=== PATIENT | female | born 1970 | race Caucasian/White ===

== ENCOUNTER 2016-07-12 23:14 | Emergency (ER) | payer SELFPAY ==
[~2016-07-12] VITALS: Ht 162.6 cm; Wt 50.9 kg
[~2016-07-12 23:14] MED LIST: OXYC1TAB3 PO
[2016-07-12 23:16] VITALS: TEMP 37; Ht 162.6 cm; Wt 50.9 kg
[2016-07-12 23:25] VITALS: O2SAT 98
[2016-07-12] MEDS ORDERED: SODIUM CHLORIDE 0.9% 1000ML 500 ML IV STA (23:33)
[2016-07-12] MEDS ORDERED: ONDANSETRON INJ 2 MG/ML 2 ML VIAL IV STA (23:33)
--- NOTE | 2016-07-12 23:38 | EMERGENCY ROOM VISIT NOTE ---
History Report prepared by Rebecca: Shahid Mayorga Under the Supervision of: Dr. Jose Carroll M.D. First contact with patient: 23:27 Chief Complaint: CHEST PAIN Stated Complaint: CHEST PAIN History of Present Illness The patient is a 46 year old female who presents to the Emergency Room with complaints of left sided chest pain that began 7 hours ago. She rates her pain a 10/10 in severity. The patient came home from work this afternoon. She then began to be nauseated, then the pain began. It has been persistent since then. She states that breathing and moving make the pain worse. She is currently short of breath secondary to pain. She denies any abdominal pain. She has a past medical history of asthma. She has never had a cardiac issue in the past or a blood clot. However, she has been receiving cardiac stress tests that have been normal. She states that she has never felt this pain before. Her pain is radiating down her left arm. She denies any recent trauma or strenuous activity. Source of History: patient Onset: 7 hours ago Position: chest (left) Symptom Intensity: 10/10 Timing: constant Modifying Factors (Worsening): breathing, movement Associated Symptoms: + SOB, No abdominal pain Note: Her pain radiates down her left arm. Review of Systems See HPI for pertinent positives & negatives. A total of 10 systems reviewed and were otherwise negative. Past Medical & Surgical Medical Problems: (1) Ankle contusion (2) Bronchitis (3) Cervical lymphadenopathy (4) Chest pain (5) COPD (chronic obstructive pulmonary disease) (6) Crohn's disease (7) GERD (gastroesophageal reflux disease) (8) History of endometriosis (9) Shoulder contusion (10) Syncope (11) Tobacco use (12) Whiplash Surgical Problems: (1) Status post cholecystectomy (2) Status post hysterectomy Family History Diabetes mellitus Gallbladder disease Heart disease Hypertension Social History Smoking Status: Current Every Day Smoker Alcohol Use: none Drug Use: none Housing Status: lives with roommate Occupation Status: employed Current/Historical Medications Scheduled Levofloxacin (Levaquin), 750 MG PO QD@16 Scheduled PRN Oxycodone Ir (Roxicodone Ir), 1-2 TAB PO Q4H PRN for Pain Allergies Coded Allergies: Codeine (Verified Allergy, Unknown, 03/20/16) Penicillins (Verified Allergy, Unknown, 03/20/16) Physical Exam Vital Signs Date Time Temp Pulse Resp B/P Pulse Ox O2 Delivery O2 Flow Rate FiO2 07/13/16 02:49 88 18 85/71 98 07/13/16 02:40 88 18 85/71 98 Room Air 07/13/16 00:28 85 21 105/67 95 Room Air 07/13/16 00:00 95 Room Air 07/12/16 23:35 99 07/12/16 23:25 98 Room Air 07/12/16 23:16 37.0 94 22 111/78 99 Room Air Physical Exam GENERAL: Patient is in mild distress, somewhat tearful, and seems anxious. HEENT: No acute trauma, normocephalic atraumatic, mucous membranes moist, no nasal congestion, no scleral icterus. NECK: No stridor, no adenopathy, no meningismus, trachea is midline. LUNGS: Clear to auscultation bilaterally, no wheeze, no rhonchi, breath sounds equal. HEART: Mildly tachycardic rate and regular rhythm, no murmurs CHEST: Tender over the anterior chest wall near left breast. Pain also worsens with deep breathing and movement. ABDOMEN: Soft, nontender, bowel sounds positive, no hernias, no peritonitis. EXTREMITIES: No cyanosis or edema, full range of motion of all the joints without pain or difficulty, no signs for acute trauma. NEUROLOGIC: Oriented x 3, no acute motor or sensory deficits, no focal weakness. SKIN: No rash, no jaundice, no diaphoresis. Medical Decision & Procedures ER Provider Diagnostic Interpretation: X ray results and stated below per my interpretation and radiologist interpretation. Other radiology results and stated below per my review and radiologist interpretation: CTA CHEST: Comparison CT chest pulmonary embolism protocol 12/03/2014. No evidence of pulmonary embolism. Aorta is unremarkable. New consolidations in the medial segment of the right middle lobe and superior lingual are demonstrated and most likely on the basis of multifocal pneumonia. Stable emphysematous changes are present in both lungs. Radiologist: Favian Dunham M.D. CHEST X-RAY: No pneumothorax or mediastinal widening, possible left base infiltrate noted. Per nh Laboratory Results 07/12/16 23:23 07/12/16 23:23 Test 07/12/16 23:23 Red Blood Count 4.18 M/uL (4.2-5.4) Mean Corpuscular Volume 94.3 fL (80-100) Mean Corpuscular Hemoglobin 32.8 pg (25-34) Mean Corpuscular Hemoglobin Concent 34.8 g/dl (32-36) RDW Standard Deviation 43.7 fL (36.4-46.3) RDW Coefficient of Variation 12.6 % (11.5-14.5) Mean Platelet Volume 12.6 fL (7.4-10.4) Prothrombin Time 10.1 SECONDS (9.0-12.0) Prothromb Time International Ratio 0.9 (0.9-1.1) Activated Partial Thromboplast Time 33.1 SECONDS (21.0-31.0) Partial Thromboplastin Ratio 1.3 Anion Gap 9.0 mmol/L (3-11) Est Creatinine Clear Calc Drug Dose 62.8 ml/min Estimated GFR () 89.5 Estimated GFR (Non- 77.2 BUN/Creatinine Ratio 8.1 (10-20) Calcium Level 8.6 mg/dl (8.5-10.1) Total Bilirubin 0.2 mg/dl (0.2-1) Aspartate Amino Transf (AST/SGOT) 11 U/L (15-37) Alanine Aminotransferase (ALT/SGPT) 23 U/L (12-78) Alkaline Phosphatase 74 U/L (45-117) Troponin I < 0.015 ng/ml (0-0.045) Total Protein 7.2 gm/dl (6.4-8.2) Albumin 3.5 gm/dl (3.4-5.0) Globulin 3.7 gm/dl (2.5-4.0) Albumin/Globulin Ratio 0.9 (0.9-2) Laboratory results reviewed by me. Medications Administered Medications (Trade) Dose Ordered Sig/Juliette Route Start Time Stop Time Status Last Admin Dose Admin Sodium Chloride (Nss 1000ml) 500 ml @ 999 mls/hr Q31M STAT IV 07/12/16 23:33 07/13/16 00:03 DC 07/12/16 00:23 999 MLS/HR Ondansetron HCl (Zofran Inj) 4 mg NOW STAT IV 07/12/16 23:33 07/12/16 23:36 DC 07/12/16 00:23 4 MG Morphine Sulfate (MoRPHine SULFATE INJ) 4 mg Q15M PRN IV 07/12/16 23:45 07/13/16 04:25 DC 07/13/16 01:09 4 MG Morphine Sulfate (MoRPHine SULFATE INJ) 4 mg STK-MED ONCE .ROUTE 07/13/16 00:14 07/13/16 00:15 DC 07/13/16 00:23 4 MG Oxycodone HCl (Roxicodone Immediate Rel 5MG Home Pack) 1 homepack UD ONCE PO 07/13/16 02:30 07/13/16 02:31 DC 07/13/16 02:45 1 HOMEPACK Levofloxacin (Levaquin Tab) 750 mg NOW STAT PO 07/13/16 02:26 07/13/16 02:27 DC 07/13/16 02:45 750 MG ECG Indication: chest pain Rate (beats per minute): 87 Rhythm: sinus rhythm, other (short ME) Findings: no acute ischemic change, no ectopy, other (poor r wave progression) ED Course 2327: The patient was evaluated in room B7. A complete history and physical exam was performed. 2333: Ordered Zofran Inj 4 mg IV, Sodium Chloride 500 ml @ 999 mls/hr IV 2345: Morphine Sulfate 4 mg IV 0014: Morphine Sulfate 4 mg .ROUTE 0056: Morphine Sulfate 4 mg .ROUTE 0226: Levaquin Tab 750 mg PO 0230: Oxycodone HCl 1 homepack PO 0245: Reevaluated the patient. Discussed results and discharge instructions: She verbalized understanding and agreement. The patient is ready for discharge. Medical Decision Differential diagnosis includes but is not limited to pulmonary embolism, aortic dissection, myocardial infarction, pneumothorax, infection, musculoskeletal chest pain, and anxiety. There is a significant leukocytosis at 20,000, this could be consistent with infection. No concerning anemia. No significant electrolyte abnormality, kidney failure or hepatitis. EKG shows a sinus rhythm with a short ME. There was no acute ischemia. Cardiac enzyme testing 1 is not consistent with acute cardiac injury. Chest x-ray shows what appears to be a left base infiltrate. No pneumothorax or CHF. Chest CT shows pneumonia, no PE or aortic dissection. Blood cultures are pending. The patient received IV saline, IV morphine and IV Zofran. She was given oral Levaquin. The patient is more comfortable. I reviewed the findings with her and her significant other. I do think she can be discharged home as she is not hypoxic or toxic. She is being discharged on Levaquin, oxycodone, hydration and rest were encouraged. If worsening, she can return. The pain is likely pleurisy from her pneumonia. [place] Drug Monitoring Program Search Results: patient reviewed within database, no issues identified Impression Primary Impression: Left-sided chest wall pain Additional Impression: Pneumonia Scribe Attestation The scribe's documentation has been prepared under my direction and personally reviewed by me in its entirety. I confirm that the note above accurately reflects all work, treatment, procedures, and medical decision making performed by me. Departure Information Dispostion Home / Self-Care Prescriptions Levofloxacin (Levaquin) 750 Mg Tab 750 MG PO QD@16, #5 TAB Prov: Jose Carroll M.D. 07/13/16 Oxycodone Ir (Roxicodone Ir) 5 Mg Tab 1-2 TAB PO Q4H Y for Pain, #12 TAB Prov: Jose Carroll M.D. 07/13/16 Referrals Candice Simpson M.D. (PCP) Forms HOME CARE DOCUMENTATION FORM, IMPORTANT VISIT INFORMATION Patient Instructions My [facility] Additional Instructions levaquin daily for 5 more days oxy ir 1-2 tab every 4 hours for severe pain heat to the chest wall rest motrin 600 mg 3x per day for pain and inflamation see dionicio mendosa this week return for worsening symptoms or breathing Problem Qualifiers
[2016-07-12] MEDS ORDERED: MoRPHine SULFATE 10 MG/ML CARP/VIAL IV PRN (23:45)
[2016-07-12] MEDS ORDERED: OPTIRAY 320 IV PRN (23:45)
[2016-07-13 00:01] LABS: HEMATOCRIT 39.4 % (37-47); MEAN CELL VOLUME 94.3 fL (80-100); MEAN CORPUSCULAR HEMOGLOBIN 32.8 pg (25-34); MEAN CORPUSCULAR HGB CONC 34.8 g/dl (32-36); MEAN PLATELET VOLUME 12.6 fL (7.4-10.4); PLATELET COUNT 246 K/uL (130-400); RED BLOOD COUNT 4.18 M/uL (4.2-5.4); WHITE BLOOD COUNT 20.24 K/uL (4.8-10.8)
[2016-07-13 00:12] LABS: INR 0.9 (0.9-1.1); PARTIAL THROMBOPLASTIN RATIO 1.3; PROTHROMBIN TIME (PATIENT) 10.1 SECONDS (9.0-12.0)
[2016-07-13] MEDS ORDERED: MoRPHine SULFATE 4 MG/ML 1 ML CARP\\VIAL ONE ×2 (00:14→00:56)
[2016-07-13 00:23] LABS: ALT/SGPT 23 U/L (12-78); BLOOD UREA NITROGEN 7 mg/dl (7-18); BUN/CREATININE RATIO 8.1 (10-20); CALCIUM 8.6 mg/dl (8.5-10.1); CARBON DIOXIDE 24 mmol/L (21-32); CHLORIDE 105 mmol/L (98-107); CREATININE 0.89 mg/dl (0.60-1.20); GLUCOSE 91 mg/dl (70-99); POTASSIUM 3.4 mmol/L (3.5-5.1); SODIUM 138 mmol/L (136-145)
[2016-07-13 00:28] LABS: ALB/GLOB RATIO 0.9 (0.9-2); ALKALINE PHOSPHATASE 74 U/L (45-117); AST/SGOT 11 U/L (15-37)
[2016-07-13] MEDS ORDERED: LEVOFLOXACIN 250 MG TAB PO STA (02:26)
[2016-07-13] MEDS ORDERED: OXYCODONE IR HOME PACK PO ONE (02:30)
[2016-07-13] MEDS ORDERED: OXYC1TAB3 PO (02:31)
[2016-07-13] MEDS ORDERED: LEVO1TAB35 PO (02:31)
[2016-07-13 02:49] VITALS: BP 85/71; PULSE 88; O2SAT 98
--- NOTE | 2016-07-13 06:46 | DIAGNOSTIC IMAGING REPORT ---
CHEST ONE VIEW PORTABLE CLINICAL HISTORY: Atypical chest pain COMPARISON STUDY: No previous studies for comparison. FINDINGS: The heart is normal in size. There is no failure. There are minimal left basilar airspace opacities.[ IMPRESSION: Minimal left basal airspace opacities (atelectatic versus inflammatory). No evidence of failure. Electronically signed by: Phan Suero M.D. 07/13/2016 6:45 AM Dictated Date/Time: 07/13/2016 6:44 AM
--- NOTE | 2016-07-13 07:25 | DIAGNOSTIC IMAGING REPORT ---
CT ANGIOGRAM OF THE CHEST CLINICAL HISTORY: Left-sided chest pain COMPARISON STUDY: 12/03/2014 TECHNIQUE: Following the IV administration of 85 mL of Optiray-320, CT angiogram of the thorax was performed from the thoracic inlet to the lung bases utilizing the pulmonary embolus protocol. Images are reviewed in the axial, sagittal, and coronal planes. IV contrast was administered without complication. MIP imaging was performed. CT DOSE: 177.27 mGy.cm FINDINGS: Hilar lymph nodes are the upper limits of normal in size. There is no pathologic axillary or mediastinal lymphadenopathy. There was no evidence of thoracic aortic dilatation. There were no pulmonary artery filling defects to indicate acute pulmonary embolism. No pleural effusions are visualized. There is underlying pulmonary emphysema. There are nodular airspace opacities within the right upper lobe and left upper lobe. A bilateral pneumonitis is suspected. Films subsequent to treatment are recommended in follow-up. IMPRESSION: 1. No evidence of acute pulmonary embolism 2. Right upper lobe and left upper lobe nodular airspace opacities, likely are presenting a pneumonia. Films subsequent to treatment are recommended in follow-up 3. Emphysema Electronically signed by: Phan Suero M.D. 07/13/2016 7:24 AM Dictated Date/Time: 07/13/2016 7:21 AM
[2016-07-13] MEDS ORDERED: KETO10TA PO (19:06)
== END 2016-07-13 02:49 | disposition home or self-care (01) ==
LOC: C.EDB 23:15
DX: J18.9 Pneumonia, unspecified organism (principal); J45.909 Unspecified asthma, uncomplicated; J44.9 Chronic obstructive pulmonary disease, unspecified; K21.9 Gastro-esophageal reflux disease without esophagitis; K50.90 Crohn's disease, unspecified, without complications; Z90.49 Acquired absence of other specified parts of digestive tract; Z90.710 Acquired absence of both cervix and uterus; Z83.3 Family history of diabetes mellitus; Z82.49 Family history of ischemic heart disease and other diseases of the circulatory system; F17.210 Nicotine dependence, cigarettes, uncomplicated

== ENCOUNTER 2016-07-13 17:44 | Emergency (ER) | payer SELFPAY ==
[~2016-07-13] VITALS: Ht 162.6 cm; Wt 51.2 kg
[~2016-07-13 17:44] MED LIST changes: +LEVO1TAB35 PO
[2016-07-13 17:45] VITALS: Ht 162.6 cm; Wt 51.2 kg
[2016-07-13] MEDS ORDERED: KETOROLAC TROMETHAMINE 60 MG/2 ML VIAL IM STA (17:54)
[2016-07-13] MEDS ORDERED: KETO10TA PO (19:06)
--- NOTE | 2016-07-13 19:06 | EMERGENCY ROOM VISIT NOTE ---
History Report prepared by Rebecca: J Luis Morris Under the Supervision of: Nella MolinaO. First contact with patient: 17:49 Chief Complaint: RESPIRATORY PROBLEMS Stated Complaint: PNX History of Present Illness The patient is a 46 year old female who presents to the Emergency Room with complaints of constant respiratory problems starting last night. The patient states that she was here in the ED last night, and she was diagnosed with pneumonia. She states that the chest pain has not gotten any better, and she has some neck pain. Additionally, she states that breathing makes the pain worse. Source of History: patient Onset: last night Position: other (global) Quality: other (respiratory problems) Timing: constant Modifying Factors (Worsening): breathing Associated Symptoms: + chest pain, + neck pain Review of Systems See HPI for pertinent positives & negatives. A total of 10 systems reviewed and were otherwise negative. Past Medical & Surgical Medical Problems: (1) Ankle contusion (2) Bronchitis (3) Cervical lymphadenopathy (4) Chest pain (5) COPD (chronic obstructive pulmonary disease) (6) Crohn's disease (7) GERD (gastroesophageal reflux disease) (8) History of endometriosis (9) Shoulder contusion (10) Syncope (11) Tobacco use (12) Whiplash Surgical Problems: (1) Status post cholecystectomy (2) Status post hysterectomy Family History Diabetes mellitus Gallbladder disease Heart disease Hypertension Social History Smoking Status: Current Every Day Smoker Alcohol Use: none Drug Use: none Housing Status: lives with roommate Occupation Status: employed Current/Historical Medications Scheduled Levofloxacin (Levaquin), 750 MG PO QD@16 Scheduled PRN Ketorolac (Toradol), 10 MG PO Q6H PRN for Pain Oxycodone Ir (Roxicodone Ir), 1-2 TAB PO Q4H PRN for Pain Allergies Coded Allergies: Codeine (Verified Allergy, Unknown, 07/13/16) Penicillins (Verified Allergy, Unknown, 07/13/16) Physical Exam Vital Signs Date Time Temp Pulse Resp B/P Pulse Ox O2 Delivery O2 Flow Rate FiO2 07/13/16 17:45 36.4 90 20 106/66 98 Room Air Physical Exam CONSTITUTIONAL/VITAL SIGNS: Reviewed / noted above. GENERAL: Non-toxic in appearance. INTEGUMENTARY: Warm, dry, and [place]. HEAD: Normocephalic. EYES: without scleral icterus or trauma. ENT/OROPHARYNX: clear and moist. LYMPHADENOPATHY/NECK: Is supple without lymphadenopathy or meningismus. RESPIRATORY: Lungs clear and equal. CARDIOVASCULAR: Regular rate and rhythm. GI/ABDOMEN: Soft and nontender. No organomegaly or pulsatile mass. No rebound or guarding. Normal bowel sounds. EXTREMITIES: Warm and well perfused. BACK: No CVA tenderness. NEUROLOGICAL: Intact without focal deficits. PSYCHIATRIC: normal affect. MUSCULOSKELETAL: Normally developed with good muscle tone. Medical Decision & Procedures Medications Administered Medications (Trade) Dose Ordered Sig/Juliette Route Start Time Stop Time Status Last Admin Dose Admin Ketorolac Tromethamine (Toradol Inj) 60 mg NOW STAT IM 07/13/16 17:54 07/13/16 17:55 DC 07/13/16 18:12 60 MG ED Course 1748: Previous medical records were reviewed. The patient was evaluated in room C2. A complete history and physical examination was performed. 1753: Toradol Inj 60mg IM 1906: On reevaluation, the patient is feeling better. I discussed the results and findings with the patient. She verbalized agreement of the treatment plan. She was discharged home. Medical Decision the differential was considered includes acute myocardial infarction, acute coronary syndrome, myocarditis, pericarditis, pericardial effusions /tamponad, esophageal perforation, thoracic aortic dissection, pulmonary embolism, pneumonia, pneumothorax, pancreatitis, shingles, acute cholecystitis, perforated abdominal viscus. This is a 46-year-old female who presents to the ED with a chief complaint of left-sided chest pain related to pneumonia. The patient was seen last night with a CT scan showing pneumonia. She was discharged on Levaquin and oxycodone. The patient states that her symptoms are persistent with regards to the pain. She was given Toradol IM here. She was given a prescription for Toradol. She is felt to be stable for discharge. The patient is in no acute distress and breathing comfortably. Vital signs are normal. Impression Primary Impression: Pleuritic chest pain Additional Impression: Pneumonia Scribe Attestation The scribe's documentation has been prepared under my direction and personally reviewed by me in its entirety. I confirm that the note above accurately reflects all work, treatment, procedures, and medical decision making performed by me. Departure Information Dispostion Home / Self-Care Prescriptions Ketorolac (Toradol) 10 Mg Tab 10 MG PO Q6H Y for Pain, #20 TAB Prov: Min Goss D.O. 07/13/16 Referrals Candice Simpson M.D. (PCP) Forms HOME CARE DOCUMENTATION FORM, IMPORTANT VISIT INFORMATION, WORK / SCHOOL INSTRUCTIONS Patient Instructions My [email or web address] Additional Instructions Toradol as prescribed. Follow-up with your doctor for further care and evaluation in 3-5 days. Return to the emergency department for worsening or new symptoms or any concerns. You have been examined and treated today on an emergency basis only. This is not a substitute for, or an effort to provide, complete comprehensive medical care. It is impossible to recognize and treat all injuries or illnesses in a single emergency department visit. It is therefore important that you follow up closely with your doctor. Call as soon as possible for an appointment. Problem Qualifiers
[2016-07-13 19:10] VITALS: BP 106/66; PULSE 90; TEMP 36.4; O2SAT 98
== END 2016-07-13 19:10 | disposition home or self-care (01) ==
LOC: C.EDB 17:44 → C.EDC 19:10
DX: J18.9 Pneumonia, unspecified organism (principal); J44.9 Chronic obstructive pulmonary disease, unspecified; K21.9 Gastro-esophageal reflux disease without esophagitis; K50.90 Crohn's disease, unspecified, without complications; Z90.49 Acquired absence of other specified parts of digestive tract; Z90.710 Acquired absence of both cervix and uterus; Z83.3 Family history of diabetes mellitus; Z82.49 Family history of ischemic heart disease and other diseases of the circulatory system; F17.210 Nicotine dependence, cigarettes, uncomplicated

== ENCOUNTER 2016-12-10 22:38 | Emergency (ER) | payer SELFPAY ==
[~2016-12-10] VITALS: Ht 162.6 cm; Wt 50.8 kg
[~2016-12-10 22:38] MED LIST changes: +KETO10TA PO
[2016-12-10 22:42] VITALS: BP 116/73; TEMP 36.7; Ht 162.6 cm; Wt 50.8 kg
[2016-12-10] MEDS ORDERED: ACET-1256 PO (23:41)
--- NOTE | 2016-12-10 23:53 | EMERGENCY ROOM VISIT NOTE ---
History First contact with patient: 23:03 Chief Complaint: FOOT PAIN Stated Complaint: RIGHT FOOT PAIN OAK TABLE FELL ON IT History of Present Illness The patient is a 46 year old female who presents to the Emergency Room with complaints of a right foot injury after a large oak table fell over onto her foot. 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 The patient reports inability to walk without limping. She denies any pain extending into the leg or toes. She denies any paresthesias or numbness. The patient does report a prior history of right ankle fracture, but denies any lateral or medial ankle pain. She rates her discomfort an 8 out of 10 with weightbearing. Review of Systems 10 system review was performed and was negative except for pertinent positives and negatives as indicated in history of present illness Past Medical/Surgical History Medical Problems: (1) Ankle contusion (2) Bronchitis (3) Cervical lymphadenopathy (4) Chest pain (5) COPD (chronic obstructive pulmonary disease) (6) Crohn's disease (7) GERD (gastroesophageal reflux disease) (8) History of endometriosis (9) Shoulder contusion (10) Syncope (11) Tobacco use (12) Whiplash Surgical Problems: (1) Status post cholecystectomy (2) Status post hysterectomy Family History Diabetes mellitus FH: kidney disease Gallbladder disease Heart disease Hypertension Social History Smoking Status: Current Every Day Smoker Alcohol Use: none Drug Use: none Housing Status: lives with roommate Occupation Status: employed Current/Historical Medications Scheduled PRN Acetaminophen (Tylenol), 1,000 MG PO Q4 PRN for Pain Physical Exam Vital Signs Date Time Temp Pulse Resp B/P (MAP) Pulse Ox O2 Delivery O2 Flow Rate FiO2 12/10/16 23:55 78 16 97 12/10/16 22:42 36.7 82 18 116/73 97 Room Air Physical Exam CONSTITUTIONAL: Healthy and well nourished. Alert and oriented X 3 with positive affect. MUSCULOSKELETAL: Examination shows minimal soft tissue edema with faint ecchymosis over the anterior ankle and proximal dorsal foot region. No abrasions or lacerations noted. No worsening pain with subtalar motion. No tenderness to palpation of the medial or lateral malleoli. Negative anterior draw. Pedal pulses are intact. INTEGUMENTARY: No rash or other significant dermatologic conditions noted. NEUROLOGIC: Right foot and toes are sensory intact. Medical Decision & Procedures ER Provider Diagnostic Interpretation: My interpretation of right foot x-rays does not show any obvious fractures or dislocation. Radiologist report is pending. ED Course Patient history and physical exam were performed. Nurse's notes were reviewed. Vital signs were reviewed and were normal. The patient refused any analgesics on initial exam. X-rays of the right foot were normal. The patient was dispensed crutches and an ice pack. The patient was encouraged to ice and elevate the foot for swelling. Ibuprofen and Tylenol in alternating fashion if needed for additional pain relief. She was instructed to follow-up with her orthopedic surgeon if symptoms are not improving within the next week. The patient voiced understanding of all discharge instructions, was happy with plan of care, and rated her discomfort a 4 out of 10 at the conclusion of my exam. Medical Decision Blood Pressure Screening Patient's blood pressure: Normal blood pressure Impression Primary Impression: Contusion of right foot Departure Information Dispostion Home / Self-Care Forms HOME CARE DOCUMENTATION FORM, IMPORTANT VISIT INFORMATION Patient Instructions My [facility] Additional Instructions Intermittently apply ice and elevate foot for swelling and pain. Use crutches for best pain relief - NO LIMPING. Ibuprofen 800 mg and/or Tylenol 1000 mg every 8 hours. You may also alternate these medications for more effective pain relief: Ibuprofen --4 HRS--> Tylenol --4 HRS--> ibuprofen --4 HRS--> Tylenol .... Follow-up with your orthopedic surgeon if symptoms are not improving within the next 5-7 days. FOR WORK: Please allowed to use crutches, or time off as needed over the next week for a foot contusion. Problem Qualifiers Primary Impression: Contusion of right foot Encounter type: initial encounter Qualified Codes: S90.31XA - Contusion of right foot, initial encounter
[2016-12-10 23:55] VITALS: PULSE 78; O2SAT 97
--- NOTE | 2016-12-11 06:36 | DIAGNOSTIC IMAGING REPORT ---
RIGHT FOOT MIN 3 VIEWS ROUTINE CLINICAL HISTORY: Right foot pain status post trauma COMPARISON: None. DISCUSSION: No fractures or dislocations are visualized. IMPRESSION: No fractures identified. Electronically signed by: Phan Suero M.D. 12/11/2016 6:34 AM Dictated Date/Time: 12/11/2016 6:34 AM
== END 2016-12-10 23:55 | disposition home or self-care (01) ==
LOC: C.EDB 22:39 → C.EDA 23:55
DX: S90.31XA Contusion of right foot, initial encounter (principal); W01.0XXA Fall on same level from slipping, tripping and stumbling without subsequent striking against object, initial encounter; K21.9 Gastro-esophageal reflux disease without esophagitis; K50.90 Crohn's disease, unspecified, without complications; J44.9 Chronic obstructive pulmonary disease, unspecified; F17.200 Nicotine dependence, unspecified, uncomplicated; Z87.828 Personal history of other (healed) physical injury and trauma; Z90.49 Acquired absence of other specified parts of digestive tract; Z90.710 Acquired absence of both cervix and uterus; Z83.3 Family history of diabetes mellitus; Z84.1 Family history of disorders of kidney and ureter; Z83.79 Family history of other diseases of the digestive system; Z82.49 Family history of ischemic heart disease and other diseases of the circulatory system